=== PATIENT | female | born 1985 | race African-American/Black ===

== ENCOUNTER 2023-12-11 19:38 | Emergency (ER) | payer SELFPAY ==
[~2023-12-11] VITALS: Ht 170.2 cm; Wt 60.0 kg
[2023-12-11 19:46] VITALS: BP 139/86; PULSE 89; RESP 16; TEMP 98.2; O2SAT 98
[2023-12-11 20:52] LABS: EOSINOPHILS % 0.9 % (0.0-5.0); HEMATOCRIT. 36.3 % (36.0-48.0); HEMOGLOBIN. 11.9 g/dL (12.0-16.0); LYMPHOCYTES % 29.6 % (20.0-50.0); MEAN CORPUSCULAR HEMOGLOBIN 30.8 pg (28.0-32.0); MEAN CORPUSCULAR HGB CONC 32.7 g/dL (31.0-37.0); MEAN CORPUSCULAR VOLUME 94.3 fL (81.0-99.0); MEAN PLATELET VOLUME 8.2 fl (7.4-10.4); MONOCYTES % 9.3 % (2.0-8.0); NEUTROPHILS % 59.2 % (40.0-76.0); PLATELET 224 x1000/uL (130-400); RED BLOOD CELL COUNT 3.85 mill/uL (4.2-5.4); RED CELL DISTRIBUTION WIDTH 14.1 % (11.6-14.6); WHITE BLOOD COUNT 6.5 x1000/uL (4.5-11.0)
[2023-12-11 20:57] LABS: CARBON DIOXIDE 29 mEq/L (21-32); CHLORIDE 108 mEq/L (98-107); POTASSIUM 3.3 mEq/L (3.5-5.1); SODIUM 141 mEq/L (136-145)
[2023-12-11 20:58] LABS: CALCIUM 9.2 mg/dL (8.7-10.4)
[2023-12-11 21:02] LABS: GLUCOSE 92 mg/dL (70-105)
[2023-12-11 21:03] LABS: UREA NITROGEN BLOOD 12 mg/dL (9-23)
[2023-12-11 21:04] LABS: ALANINE AMINOTRANSFERASE 20 IU/L (10-49); ALBUMIN 4.1 g/dL (3.2-4.8); ASPARTATE AMINOTRANSFERASE 26 IU/L (<34)
[2023-12-11 21:05] LABS: BILIRUBIN DIRECT 0.2 mg/dL (<=3.0); BILIRUBIN TOTAL 0.6 mg/dL (0.1-1.0); PROTEIN TOTAL 6.4 g/dL (6.0-8.3)
[2023-12-11 21:09] LABS: TROPONIN I HIGH SENSITIVITY < 4 ng/L (3.0-34)
== END 2023-12-11 23:30 | disposition left against medical advice (07) ==
LOC: ER 19:38
DX: F15.90 Other stimulant use, unspecified, uncomplicated (principal); R11.2 Nausea with vomiting, unspecified; R07.9 Chest pain, unspecified; Z98.890 Other specified postprocedural states
CPT/HCPCS: 36415; 71045; 80048; 80076; 84484; 85025; 93005; 99285

== ENCOUNTER 2024-06-29 21:57 | Emergency (ER) | payer SELFPAY ==
[~2024-06-29] VITALS: Ht 170.2 cm; Wt 62.0 kg
[2024-06-29 21:59] VITALS: O2SAT 100
[2024-06-29 22:06] VITALS: BP 131/77; PULSE 105; RESP 16; TEMP 36.7; O2SAT 100
[2024-06-30 01:00] LABS: BASOPHILS % 0.9 % (0.0-2.0); EOSINOPHILS % 1.4 % (0.0-5.0); HEMATOCRIT. 35.6 % (36.0-48.0); LYMPHOCYTES % 32.5 % (20.0-50.0); MEAN CORPUSCULAR HEMOGLOBIN 31.3 pg (28.0-32.0); MEAN CORPUSCULAR HGB CONC 33.7 g/dL (31.0-37.0); MEAN CORPUSCULAR VOLUME 92.7 fL (81.0-99.0); MEAN PLATELET VOLUME 8.1 fl (7.4-10.4); MONOCYTES % 9.6 % (2.0-8.0); NEUTROPHILS % 55.6 % (40.0-76.0); PLATELET 277 x1000/uL (130-400); RED BLOOD CELL COUNT 3.84 mill/uL (4.2-5.4); RED CELL DISTRIBUTION WIDTH 13.6 % (11.6-14.6); WHITE BLOOD COUNT 6.1 x1000/uL (4.5-11.0)
[2024-06-30 01:07] LABS: CHLORIDE 104 mEq/L (98-107); POTASSIUM 3.5 mEq/L (3.5-5.1); SODIUM 141 mEq/L (136-145)
[2024-06-30 01:08] LABS: CARBON DIOXIDE 31 mEq/L (21-32)
[2024-06-30 01:09] LABS: CALCIUM 9.4 mg/dL (8.7-10.4)
[2024-06-30 01:13] LABS: CREATININE 0.7 mg/dL (0.6-1.0); GLUCOSE 111 mg/dL (70-105)
[2024-06-30 01:14] LABS: UREA NITROGEN BLOOD 11 mg/dL (9-23)
[2024-06-30] MEDS: ACETAMINOPHEN 325MG TABLET PO ONE (01:23)
[2024-06-30 01:29] LABS: TROPONIN I HIGH SENSITIVITY 48 ng/L (3.0-34)
== END 2024-06-30 02:00 | disposition left against medical advice (07) ==
LOC: ER 21:57
DX: R07.89 Other chest pain (principal); R07.9 Chest pain, unspecified
CPT/HCPCS: 36415; 71045; 80048; 83880; 84484; 85025; 99284